=== PATIENT | female | born 2000 | race Caucasian/White ===

== ENCOUNTER 2018-04-10 17:37 | Emergency (ER) | payer OTHER ==
[~2018-04-10] VITALS: Ht 167.6 cm; Wt 61.2 kg
[~2018-04-10 17:37] MED LIST: METO10 PO; Norco 5-325 Ta1 EACH PO; Zofran Odt4 MG SL
[2018-04-10] MEDS ORDERED: Prednisone20 MG PO (18:59)
[2018-04-10] MEDS ORDERED: BENZ100A PO (19:03)
[2018-04-10] MEDS ORDERED: ALBU90OI INH (19:03)
[2018-04-10] MEDS ORDERED: Cheratussin AC118 ML PO (19:03)
[2018-04-10] MEDS ORDERED: Flonase 0.05% N16 GM (19:03)
== END 2018-04-10 19:12 | disposition home or self-care (01) ==
LOC: ER 17:37
DX: R05 Cough (principal)
CPT/HCPCS: 71046; 99284

== ENCOUNTER 2018-05-30 13:14 | Emergency (ER) | payer OTHER ==
[~2018-05-30 13:14] MED LIST changes: +ALBU90OI INH; +BENZ100A PO; +Cheratussin AC118 ML PO; +Flonase 0.05% N16 GM; +Prednisone20 MG PO
== END 2018-05-30 13:44 | disposition left against medical advice (07) ==
LOC: ER 13:14
DX: Z53.21 Procedure and treatment not carried out due to patient leaving prior to being seen by health care provider (principal)

== ENCOUNTER 2018-06-03 01:56 | Emergency (ER) | payer OTHER ==
[~2018-06-03] VITALS: Ht 167.6 cm; Wt 61.2 kg
== END 2018-06-03 04:07 | disposition home or self-care (01) ==
LOC: ER 01:56
DX: T63.461A Toxic effect of venom of wasps, accidental (unintentional), initial encounter (principal); Z87.891 Personal history of nicotine dependence
CPT/HCPCS: Q0163

== ENCOUNTER 2018-11-29 22:08 | Emergency (ER) | payer OTHER ==
[~2018-11-29] VITALS: Ht 170.2 cm; Wt 63.5 kg
[~2018-11-29 22:08] MED LIST changes: +BENADRYL25 MG PO; +SELSUN BLUE325 ML TOP
== END 2018-11-30 00:40 | disposition home or self-care (01) ==
LOC: ER 22:08
DX: L29.9 Pruritus, unspecified (principal); Z87.891 Personal history of nicotine dependence
CPT/HCPCS: 99282; Q0163

== ENCOUNTER → 2019-02-23 | Outpatient (CLI) | payer OTHER ==
[2019-02-25 00:06] LABS: CHLAMYDIA TRACHOMATIS, NAA Negative (Negative); NEISSERIA GONORRHOEAE, NAA Negative (Negative)
== END | disposition home or self-care (01) ==
LOC: LAB 11:10 → LAB SHORT 11:10
PROVIDERS: Obstetrics & Gynecology
DX: Z11.3 Encounter for screening for infections with a predominantly sexual mode of transmission (principal)
CPT/HCPCS: 87491; 87591

== ENCOUNTER 2021-08-05 11:59 | Emergency (ER) | payer OTHER ==
[~2021-08-05] VITALS: Ht 170.2 cm; Wt 68.0 kg
== END 2021-08-05 12:56 | disposition home or self-care (01) ==
LOC: ER 11:59
DX: R07.89 Other chest pain (principal); M25.512 Pain in left shoulder; Z87.891 Personal history of nicotine dependence; V49.40XA Driver injured in collision with unspecified motor vehicles in traffic accident, initial encounter
CPT/HCPCS: 71046; 72125; 99284-25